=== PATIENT | male | born 1995 | race Hispanic/Latino ===

== ENCOUNTER 2017-02-08 22:04 | Emergency (ER) | payer OTHER ==
[~2017-02-08] VITALS: Ht 180.3 cm; Wt 85.8 kg
[~2017-02-08 22:04] MED LIST: AMOXICILLIN500 MG PO; CLINDAMYCIN300 M1 PO; KEFLEX500 M1 PO; LORTAB 5-325 MG1 TAB PO; MEDDOSEPAK PO; NAPROSYN500 MG PO; ROBITUSSIN AC10 ML PO
[2017-02-08] MEDS ORDERED: NAPROSYN500 MG PO (23:33)
[2017-02-08 23:40] VITALS: BP 137/78
== END 2017-02-08 23:40 | disposition home or self-care (01) | DRG 605 ==
LOC: ED 22:04
DX: S40.011A Contusion of right shoulder, initial encounter (principal); W18.30XA Fall on same level, unspecified, initial encounter; Y93.89 Activity, other specified; Y92.007 Garden or yard of unspecified non-institutional (private) residence as the place of occurrence of the external cause

== ENCOUNTER 2017-03-17 18:28 | Emergency (ER) | payer OTHER ==
[~2017-03-17] VITALS: Ht 180.3 cm; Wt 80.0 kg
[2017-03-17] MEDS ORDERED: MUCINEX D1 TAB PO (18:56)
[2017-03-17 19:13] VITALS: BP 131/84
[2017-03-18] MEDS ORDERED: SUDAFED 12HR120 MG PO (10:48)
== END 2017-03-17 19:14 | disposition home or self-care (01) | DRG 866 ==
LOC: ED 18:28
DX: B34.9 Viral infection, unspecified (principal); R09.81 Nasal congestion; R05 Cough

== ENCOUNTER 2017-03-19 20:50 | Emergency (ER) | payer OTHER ==
[~2017-03-19] VITALS: Ht 180.3 cm; Wt 86.8 kg
[~2017-03-19 20:50] MED LIST changes: +MUCINEX D1 TAB PO; +SUDAFED 12HR120 MG PO
[2017-03-19 22:05] VITALS: BP 124/92
== END 2017-03-19 22:05 | disposition home or self-care (01) | DRG 866 ==
LOC: ED 20:50
DX: B34.9 Viral infection, unspecified (principal); F17.210 Nicotine dependence, cigarettes, uncomplicated

== ENCOUNTER 2017-04-01 09:07 | Emergency (ER) | payer OTHER ==
[~2017-04-01] VITALS: Ht 180.3 cm; Wt 80.0 kg
[2017-04-01] MEDS ORDERED: SUDAFED 12HR120 MG PO (09:23)
[2017-04-01] MEDS ORDERED: MOTRIN800 MG PO (09:23)
[2017-04-01 09:27] VITALS: BP 132/70
== END 2017-04-01 09:38 | disposition home or self-care (01) | DRG 153 ==
LOC: ED 09:07
DX: J06.9 Acute upper respiratory infection, unspecified (principal); R05 Cough

== ENCOUNTER 2017-04-15 19:25 | Emergency (ER) | payer OTHER ==
[~2017-04-15] VITALS: Ht 180.3 cm; Wt 88.8 kg
[~2017-04-15 19:25] MED LIST changes: +MOTRIN800 MG PO
[2017-04-15 20:28] VITALS: BP 137/72
== END 2017-04-15 20:28 | disposition home or self-care (01) | DRG 607 ==
LOC: ED 19:25
DX: R21 Rash and other nonspecific skin eruption (principal); F17.210 Nicotine dependence, cigarettes, uncomplicated

== ENCOUNTER 2018-01-23 08:49 | Emergency (ER) | payer OTHER ==
[~2018-01-23] VITALS: Ht 180.3 cm; Wt 100.0 kg
[2018-01-23 09:52] LABS: HEMATOCRIT 45.7 % (39.0-50.0); HEMOGLOBIN 15.5 g/dl (14.0-18.0); IMMATURE GRANULOCYTES 0.3 % (0.0-1.0); MEAN CELL VOLUME 88.2 fL CALC (80.0-100.0); MEAN CORPUSCULAR HGB 29.9 pG CALC (26.0-32.0); MEAN CORPUSCULAR HGB CONC 33.9 g/L CALC (32.0-36.0); NEUT# 6.54 thou/uL (1.82-7.42); RED BLOOD COUNT 5.18 mill/uL (4.70-6.10); RED CELL DISTRI WIDTH 13.8 % (11.5-15.5)
[2018-01-23 10:14] VITALS: BP 128/75
== END 2018-01-23 10:25 | disposition home or self-care (01) | DRG 866 ==
LOC: ED 08:49
PROVIDERS: Family Medicine
DX: B34.9 Viral infection, unspecified (principal); F17.200 Nicotine dependence, unspecified, uncomplicated; R05 Cough; R09.81 Nasal congestion; R09.89 Other specified symptoms and signs involving the circulatory and respiratory systems

== ENCOUNTER 2019-06-04 04:47 | Observation (INO) | payer SELFPAY ==
[~2019-06-04] VITALS: Ht 180.3 cm; Wt 89.4 kg
[2019-06-04 06:02] LABS: HEMATOCRIT 50.7 % (39.0-50.0); IMMATURE GRANULOCYTES 0.5 % (0.0-5.0); MEAN CELL VOLUME 86.5 fL CALC (80.0-100.0); MEAN CORPUSCULAR HGB 30.4 pG CALC (26.0-32.0); MEAN CORPUSCULAR HGB CONC 35.1 g/L CALC (32.0-36.0); NEUT# 7.07 thou/uL (1.82-7.42); RED BLOOD COUNT 5.86 mill/uL (4.70-6.10); RED CELL DISTRI WIDTH 13.1 % (11.5-15.5)
[2019-06-04 06:15] LABS: HEMOGLOBIN 17.8 g/dl (14.0-18.0)
[2019-06-04 06:21] LABS: ALBUMIN 5.8 g/dL (3.2-5.0); BILIRUBIN, TOTAL 1.5 mg/dL (0.0-1.4); CREATININE 2.2 mg/dL (0.7-1.3); TOTAL PROTEIN 10.5 g/dL (6.3-8.2)
[2019-06-04 06:42] LABS: URINE BLOOD DIPSTICK NEGATIVE (NEGATIVE); URINE COLOR YELLOW; URINE GLUCOSE - DIPSTICK NEGATIVE (NEGATIVE); URINE KETONE 40 mg/dL (NEGATIVE); URINE LEUK ESTERASE NEGATIVE (NEGATIVE); URINE NITRITE - DIPSTICK NEGATIVE (Negative); URINE PROTEIN - DIPSTICK 100 mg/dL (NEG-TRACE); URINE SPECIFIC GRAVITY >=1.030
[2019-06-04 06:44] LABS: URINE BILIRUBIN - DIPSTICK MODERATE (NEGATIVE)
[2019-06-04 06:45] LABS: URINE EPITHELIAL CELLS FEW EPI/hpf (0-FEW); URINE MUCUS MODERATE hpf (NONE-FEW)
[2019-06-04 06:47] LABS: BARBITURATES NEGATIVE (NEGATIVE); COCAINE NEGATIVE (NEGATIVE); METHADONE NEGATIVE (NEGATIVE); OXCYCODONE NEGATIVE (NEGATIVE); TETRAHYDROCANNABIONOL POSITIVE (NEGATIVE); TRICYLIC ANTIDEPRESSANTS NEGATIVE (NEGATIVE)
[2019-06-04 06:56] LABS: MYOGLOBIN 141 ng/mL (0 - 121)
[2019-06-04 08:50] VITALS: BP 124/74
[2019-06-04 15:49] VITALS: BP 118/58
[2019-06-04 18:58] VITALS: BP 137/63
[2019-06-05 04:19] VITALS: BP 100/64
[2019-06-05 06:02] LABS: MEAN CELL VOLUME 89.6 fL CALC (80.0-100.0); MEAN CORPUSCULAR HGB 30.3 pG CALC (26.0-32.0); MEAN CORPUSCULAR HGB CONC 33.8 g/L CALC (32.0-36.0); RED BLOOD COUNT 4.42 mill/uL (4.70-6.10); RED CELL DISTRI WIDTH 12.9 % (11.5-15.5)
[2019-06-05 06:06] LABS: HEMATOCRIT 39.6 % (39.0-50.0); HEMOGLOBIN 13.4 g/dl (14.0-18.0)
[2019-06-05 06:24] LABS: BUN 15 mg/dL (9-20); POTASSIUM 3.8 mmol/l (3.5-5.1); SODIUM 139 mmol/l (137-146)
[2019-06-05 06:29] LABS: ANION GAP 8 (6-22 (CALC)); BUN/CREATININE RATIO 17 (12-20 (CALC)); CHLORIDE 107 mmol/l (95-108); CREATININE 0.9 mg/dL (0.7-1.3); GFR > 60 ML/MIN (>=60 (CALC)); GFR FOR AFR.AMER. > 60 ML/MIN (>=60 (CALC))
[2019-06-05 06:30] LABS: CARBON DIOXIDE 28 mmol/l (22-30)
[2019-06-05 07:51] VITALS: BP 109/62
== END 2019-06-05 11:14 | disposition home or self-care (01) | DRG 684 ==
LOC: ED 04:47 → ED-I 05:09 → ED 07:26 → MS2 07:27
PROVIDERS: Emergency Medicine; ADMIT Internal Medicine; ATTEND Internal Medicine
DX: N17.9 Acute kidney failure, unspecified (principal); E86.0 Dehydration; J45.909 Unspecified asthma, uncomplicated; F17.200 Nicotine dependence, unspecified, uncomplicated
CPT/HCPCS: G0378

== ENCOUNTER 2021-10-04 17:29 | Emergency (ER) | payer SELFPAY ==
[~2021-10-04] VITALS: Ht 182.9 cm; Wt 79.0 kg
[2021-10-04] MEDS ORDERED: BACTROBAN TOP (19:30)
[2021-10-04] MEDS ORDERED: BACTRIM DS1 TAB PO (19:30)
[2021-10-04 20:30] VITALS: BP 123/76
== END 2021-10-04 20:31 | disposition home or self-care (01) | DRG 603 ==
LOC: ED 17:29
DX: L02.01 Cutaneous abscess of face (principal); L03.211 Cellulitis of face; J45.909 Unspecified asthma, uncomplicated; F17.210 Nicotine dependence, cigarettes, uncomplicated

== ENCOUNTER 2021-10-06 17:21 | Emergency (ER) | payer SELFPAY ==
[~2021-10-06] VITALS: Ht 182.9 cm; Wt 85.0 kg
[~2021-10-06 17:21] MED LIST changes: +BACTRIM DS1 TAB PO; +BACTROBAN TOP
[2021-10-06] MEDS ORDERED: BACTRIM DS1 TAB PO (17:51)
[2021-10-06 18:23] VITALS: BP 136/75
== END 2021-10-06 18:23 | disposition home or self-care (01) | DRG 603 ==
LOC: ED 17:21
PROC: 0H91XZZ Drainage of Face Skin, External Approach (ICD-10-PCS; principal; 2021-10-06)
DX: L02.01 Cutaneous abscess of face (principal); L03.211 Cellulitis of face; J45.909 Unspecified asthma, uncomplicated; F17.200 Nicotine dependence, unspecified, uncomplicated; B95.62 Methicillin resistant Staphylococcus aureus infection as the cause of diseases classified elsewhere

== ENCOUNTER 2021-10-09 09:24 | Emergency (ER) | payer SELFPAY ==
[~2021-10-09] VITALS: Ht 182.9 cm; Wt 77.3 kg
[2021-10-09 09:44] VITALS: BP 126/63
== END 2021-10-09 09:52 | disposition home or self-care (01) | DRG 951 ==
LOC: ED 09:24
DX: Z48.01 Encounter for change or removal of surgical wound dressing (principal); J45.909 Unspecified asthma, uncomplicated; F17.200 Nicotine dependence, unspecified, uncomplicated

== ENCOUNTER 2022-07-28 19:04 | Emergency (ER) | payer SELFPAY ==
[~2022-07-28] VITALS: Ht 182.9 cm; Wt 72.0 kg
[2022-07-28 20:19] LABS: HEMATOCRIT 43.1 % (39.0-50.0); HEMOGLOBIN 14.8 g/dl (14.0-18.0); IMMATURE GRANULOCYTES 0.3 % (0.0-5.0); MEAN CELL VOLUME 90.9 fL CALC (80.0-100.0); MEAN CORPUSCULAR HGB 31.2 pG CALC (26.0-32.0); MEAN CORPUSCULAR HGB CONC 34.3 g/dL CAL (32.0-36.0); NEUT# 5.85 thou/uL (1.82-7.42); RED BLOOD COUNT 4.74 mill/uL (4.70-6.10)
[2022-07-28] MEDS ORDERED: TAM75CAP PO (21:05)
[2022-07-28 21:14] VITALS: BP 110/70
== END 2022-07-28 21:20 | disposition home or self-care (01) | DRG 195 ==
LOC: ED 19:04
PROVIDERS: Family Medicine
DX: J10.1 Influenza due to other identified influenza virus with other respiratory manifestations (principal); J45.909 Unspecified asthma, uncomplicated; F17.200 Nicotine dependence, unspecified, uncomplicated; Z20.822 Contact with and (suspected) exposure to COVID-19

== ENCOUNTER 2023-02-19 15:07 | Emergency (ER) | payer SELFPAY ==
[~2023-02-19] VITALS: Ht 182.9 cm; Wt 72.0 kg
[~2023-02-19 15:07] MED LIST changes: +TAM75CAP PO
[2023-02-19 15:23] VITALS: BP 121/76
[2023-02-19 15:30] VITALS: BP 122/71
[2023-02-19 16:01] VITALS: BP 131/74
[2023-02-19 16:31] VITALS: BP 112/74
[2023-02-19] MEDS ORDERED: MEDDOSEPAK PO (16:31)
[2023-02-19] MEDS ORDERED: ZPAK PO (16:31)
[2023-02-19 16:34] VITALS: BP 112/74
== END 2023-02-19 16:46 | disposition home or self-care (01) | DRG 153 ==
LOC: ED 15:07
DX: J06.9 Acute upper respiratory infection, unspecified (principal); J45.909 Unspecified asthma, uncomplicated; F17.200 Nicotine dependence, unspecified, uncomplicated; Z20.822 Contact with and (suspected) exposure to COVID-19